=== PATIENT | male | born 1995 | race Caucasian/White ===

== ENCOUNTER → 2020-01-14 | Emergency (ER) | payer MEDICAID ==
[~2020-01-14] VITALS: Ht 190.5 cm; Wt 95.2 kg
[~2020-01-14] MED LIST: DOXY100T56 PO; ONDA8TAB6 PO; ibuprofen 100 MG/5 ML oral susp PO ONE
[2020-01-14 23:49] VITALS: BP 139/73
== END | disposition home or self-care (01) ==
LOC: ER 23:48
DX: M27.2 Inflammatory conditions of jaws (principal); K21.9 Gastro-esophageal reflux disease without esophagitis; Z79.899 Other long term (current) drug therapy
CPT/HCPCS: 99282; 99283

== ENCOUNTER 2020-01-15 20:48 | Emergency (ER) | payer MEDICAID ==
[~2020-01-15] VITALS: Ht 193 cm; Wt 95.5 kg
[~2020-01-15 20:48] MED LIST changes: -ibuprofen 100 MG/5 ML oral susp PO ONE
[2020-01-15 20:57] VITALS: BP 127/70
[2020-01-15] MEDS ORDERED: iohexol 300mg/ml 100ml inj. ONE (21:25)
[2020-01-15 21:40] LABS: BASOPHILS # (AUTO) 0.1 X10'3 (0-0.2); BASOPHILS % (AUTO) 0.6 % (0-1); EOSINOPHILS # (AUTO) 0.1 X10'3 (0-0.9); LYMPHOCYTES # (AUTO) 1.8 X10'3 (1.1-4.8); MONOCYTES # (AUTO) 0.7 X10'3 (0-0.9); PLATELET COUNT 231 X10'3 (140-440)
[2020-01-15 21:42] LABS: EOSINOPHILS % (AUTO) 0.7 % (0-6); HEMATOCRIT 41.9 % (42.0-52.0); HEMOGLOBIN 14.5 g/dl (14.0-17.9); MEAN CORPUSCULAR HEMOGLOBIN 33.3 PG (27.0-31.0); MEAN CORPUSCULAR HGB CONC 34.5 g/dL (33.0-36.5); MEAN CORPUSCULAR VOLUME 96.6 FL (78-98); MEAN PLATELET VOLUME 8.1 FL (7.4-10.4); NEUTROPHILS # (AUTO) 7.7 X10'3 (1.8-7.7); NEUTROPHILS % (AUTO) 74.7 % (42-75); RED BLOOD COUNT 4.34 X10'6 (4.70-6.10); RED CELL DISTRIBUTION WIDTH 12.6 % (11.5-14.5); WHITE BLOOD COUNT 10.4 X10'3 (4.5-11.0)
--- NOTE | 2020-01-15 21:45 | NUR ---
Attempted to insert an IV. Pt stated he felt like he was going to faint. He jerked and the iv came out. The patient refused a second attempt.
[2020-01-15 21:49] LABS: ALANINE AMINOTRANSFERASE 19 U/L (12-78); ALBUMIN 3.8 G/DL (3.4-5.0); ALKALINE PHOSPHATASE 83 IU/L (46-116); ANION GAP 11 (8-16); ASPARTATE AMINO TRANSFERASE 25 U/L (10-37); BILIRUBIN,TOTAL 0.5 MG/DL (0.1-1.0); BLOOD UREA NITROGEN 10 MG/DL (7-18); BUN/CREATININE RATIO 10.5 (5.4-32.0); CALCIUM 8.7 MG/DL (8.5-10.1); CHLORIDE 104 MMOL/L (99-107); CREATININE 0.95 MG/DL (0.60-1.10); GLUCOSE 90 MG/DL (70-104); POTASSIUM 3.7 MMOL/L (3.5-5.1); SODIUM 141 MMOL/L (135-145); TOTAL CARBON DIOXIDE 25.7 MMOL/L (24-32); TOTAL PROTEIN 7.8 G/DL (6.4-8.2); eGFR > 90 ML/MIN
== END 2020-01-15 22:00 | disposition left against medical advice (07) ==
LOC: ER 20:49
DX: K04.7 Periapical abscess without sinus (principal); K21.9 Gastro-esophageal reflux disease without esophagitis; R11.0 Nausea; Z79.899 Other long term (current) drug therapy
CPT/HCPCS: 36415; 80053; 85025; 99283; Q9967